=== PATIENT | female | born 1995 | race Caucasian/White ===

== ENCOUNTER 2017-06-15 07:14 | Emergency (ER) | END 2017-06-15 08:19 | disposition home or self-care (01) ==

== ENCOUNTER 2017-07-17 04:10 | Emergency (ER) | END 2017-07-17 08:43 | disposition home or self-care (01) ==

== ENCOUNTER 2018-07-16 14:08 | Emergency (ER) | payer OTHER ==
[~2018-07-16] VITALS: Ht 160 cm; Wt 107.6 kg
[~2018-07-16 14:08] MED LIST: AMOX500C2 PO; BEN25 PO; FIORICET PO; HC1C30 TOP; IBUP-1542 PO; IBUP-1561 PO
[2018-07-16 14:17] VITALS: BP 145/94; PULSE 99; RESP 18; Ht 160 cm; Wt 107.6 kg
[2018-07-16] MEDS ORDERED: ACET325T33 PO (14:36)
[2018-07-16] MEDS ORDERED: FAMO-96 PO (14:36)
--- NOTE | 2018-07-16 14:44 | ERD ---
ER Documentation Chief Complaint Chief Complaint Feels like there is "fluid in her throat" but not swelling/pain x 1 week HPI 23-year-old female presenting with irritation in her throat. She states that she occasionally has a burp that comes up from her belly and alleviates her irritation. Patient states this has been going on for about a week. She is not taken medications for symptoms. Denies any recent runny nose, shortness of breath or abdominal pain. Has no vomiting but feels nauseous. No fevers. Medical history of seizures. NKDA. Surgical history tonsillectomy 15 years ago. Social history denies ROS All systems reviewed and are negative except as per history of present illness. Medications Home Meds Active Scripts Acetaminophen* (Tylenol*) 325 Mg Tablet, 2 TAB PO Q6 PRN for PAIN AND OR ELEVATED TEMP, #20 TAB Prov:JOE GRULLON PA-C 07/16/18 Famotidine* (Pepcid*) 20 Mg Tablet, 20 MG PO BID for 4 Days, #30 TAB Prov:JOE GRULLON PA-C 07/16/18 Ibuprofen* (Motrin*) 600 Mg Tab, 600 MG PO Q6, #30 TAB Prov:JENNI DESAI PA-C 07/17/17 Amoxicillin* (Amoxicillin*) 500 Mg Cap, 500 MG PO TID for 7 Days, CAP Prov:JENNI DESAI PA-C 07/17/17 Acetamin/Butalbital/Caffeine* (Fioricet*) [id number] Tab, 1 TAB PO Q6H PRN for PAIN, #30 TAB Prov:JOE GRULLON PA-C 06/15/17 Hydrocortisone* Topical (Hydrocortisone* Topical) 1%-28.35 Gm Cream..g., 1 APPLIC TOP BID, #1 TUB 2 Refills Prov:ARA BRADFORD PA-C 08/08/15 Diphenhydramine Hcl* (Benadryl*) 25 Mg Cap, 25 MG PO Q6, #30 CAP 0 Refills Prov:ARA BRADFORD PA-C 08/08/15 Ibuprofen* (Motrin*) 400 Mg Tab, 400 MG PO Q8, #30 TAB 0 Refills Prov:ARA BRADFORD PA-C 08/08/15 Allergies Allergies: Coded Allergies: No Known Drug Allergies (Verified Allergy, Unknown, 08/08/15) PMhx/Soc History of Surgery: Yes (Tonsillectomy) Anesthesia Reaction: No Hx Neurological Disorder: No Hx Respiratory Disorders: No Hx Cardiac Disorders: No Hx Psychiatric Problems: No Hx Miscellaneous Medical Probl: Yes (Gall stones) Hx Alcohol Use: No Hx Substance Use: No Hx Tobacco Use: No FmHx Family History: No diabetes, No coronary disease, No other Physical Exam Vitals Vital Signs Date Temp Pulse Resp B/P (MAP) Pulse Ox O2 O2 Flow FiO2 Time Delivery Rate 07/16/18 98.0 99 18 145/94 98 14:17 (111) Physical Exam GENERAL: The patient is well-appearing, well-nourished, in no acute distress HEENT: Atraumatic. Conjunctivae are pink. Pupils equal, round, and reactive to light. There is no scleral icterus. Tympanic membranes clear bilaterally. Oropharynx clear. NECK: C-spine is soft and supple. There is no meningismus. There is no cervical lymphadenopathy. CHEST: Clear to auscultation bilaterally. There are no rales, wheezes or rhonchi. HEART: Regular rate and rhythm. No murmurs, clicks, rubs or gallops. ABDOMEN:Soft, nontender and nondistended. Good bowel sounds. No rebound or guarding. No gross peritonitis. No gross organomegaly or masses. Procedures/MDM MDM: 23-year-old female presenting with throat irritation. I believe patient likely has acid reflux. I have low suspicion for bacterial throat infection. I have low suspicion for pneumonia. I have low suspicion for acute abdominal emergency. I have low suspicion for bacterial infectious etiology. Patient is discharged with supportive medications and recommended to return to the ER symptoms change or worsen. All questions answered at discharge Departure Diagnosis: Primary Impression: Sore throat Condition: Stable Patient Instructions: Tips to Control Acid Reflux Referrals: COMMUNITY CLINICS YOU HAVE RECEIVED A MEDICAL SCREENING EXAM AND THE RESULTS INDICATE THAT YOU DO NOT HAVE A CONDITION THAT REQUIRES URGENT TREATMENT IN THE EMERGENCY DEPARTMENT. FURTHER EVALUATION AND TREATMENT OF YOUR CONDITION CAN WAIT UNTIL YOU ARE SEEN IN YOUR DOCTORS OFFICE WITHIN THE NEXT 1-2 DAYS. IT IS YOUR RESPONSIBILITY TO MAKE AN APPOINTMENT FOR FOLOW-UP CARE. IF YOU HAVE A PRIMARY DOCTOR --you should call your primary doctor and schedule an appointment IF YOU DO NOT HAVE A PRIMARY DOCTOR YOU CAN CALL OUR PHYSICIAN REFERRAL HOTLINE AT IF YOU CAN NOT AFFORD TO SEE A PHYSICIAN YOU CAN CHOSE FROM THE FOLLOWING [facility] [address] [facility] [address] [facility] [address] [facility] [address] [facility] [address] [facility] [address] Additional Instructions: FOLLOW UP WITH YOUR PRIMARY CARE PHYSICIAN TOMORROW.Return to this facility if you are not improving as expected. JOE GRULLON PA-C Jul 16, 2018 14:44
== END 2018-07-16 15:03 | disposition home or self-care (01) ==
LOC: FTE 14:08
DX: J02.9 Acute pharyngitis, unspecified (principal)
CPT/HCPCS: 99282

== ENCOUNTER 2018-07-23 22:32 | Emergency (ER) | payer OTHER ==
[~2018-07-23] VITALS: Ht 160 cm; Wt 107.9 kg
[~2018-07-23 22:32] MED LIST changes: +ACET325T33 PO; +FAMO-96 PO
[2018-07-23 22:43] VITALS: BP 149/93; PULSE 76; RESP 18; Ht 160 cm; Wt 107.9 kg
--- NOTE | 2018-07-24 01:07 | ERD ---
ER Documentation Chief Complaint Chief Complaint non prod cough x2wk, sob on exertion. denies asthma. no NVD, no temp HPI This is a 23-year-old female patient who presents to the emergency room with complaint of feeling like her throat is closing and cough after she runs up the stairs at her house. States this only happens to her at night when she gets home from being out. The only time she runs up any stairs or exerts herself is when she is at home. Denies fevers, denies dysphasia, unproductive cough, no wheezing, no chest pain. No recent travel, no hormone therapy, no leg pain. ROS All systems reviewed and are negative except as per history of present illness. Medications Home Meds Active Scripts Omeprazole* (Omeprazole*) 40 Mg Capsule.dr, 40 MG PO DAILY, #10 CAP Prov:TRACE RODRIGUEZ NP 07/24/18 Albuterol Sulfate* (Proair HFA*) 8.5 Gm Hfa.aer.ad, 2 PUFF INH Q4 for wheezing, #1 INHALER Prov:TRACE RODRIGUEZ NP 07/24/18 Acetaminophen* (Tylenol*) 325 Mg Tablet, 2 TAB PO Q6 PRN for PAIN AND OR ELEVATED TEMP, #20 TAB Prov:JOE GRULLON PA-C 07/16/18 Famotidine* (Pepcid*) 20 Mg Tablet, 20 MG PO BID for 4 Days, #30 TAB Prov:JOE GRULLON PA-C 07/16/18 Ibuprofen* (Motrin*) 600 Mg Tab, 600 MG PO Q6, #30 TAB Prov:JENNI DESAI PA-C 07/17/17 Amoxicillin* (Amoxicillin*) 500 Mg Cap, 500 MG PO TID for 7 Days, CAP Prov:JENNI DESAI PA-C 07/17/17 Acetamin/Butalbital/Caffeine* (Fioricet*) [id number] Tab, 1 TAB PO Q6H PRN for PAIN, #30 TAB Prov:JOE GRULLON PA-C 06/15/17 Hydrocortisone* Topical (Hydrocortisone* Topical) 1%-28.35 Gm Cream..g., 1 APPLIC TOP BID, #1 TUB 2 Refills Prov:ARA BRADFORD PA-C 08/08/15 Diphenhydramine Hcl* (Benadryl*) 25 Mg Cap, 25 MG PO Q6, #30 CAP 0 Refills Prov:ARA BRADFORD JACKIEMeenaYajaira 08/08/15 Ibuprofen* (Motrin*) 400 Mg Tab, 400 MG PO Q8, #30 TAB 0 Refills Prov:ARA BRADFORDYajaira 08/08/15 Allergies Allergies: Coded Allergies: No Known Drug Allergies (Verified Allergy, Unknown, 08/08/15) PMhx/Soc History of Surgery: Yes (Tonsillectomy) Anesthesia Reaction: No Hx Neurological Disorder: No Hx Respiratory Disorders: No Hx Cardiac Disorders: No Hx Psychiatric Problems: No Hx Miscellaneous Medical Probl: Yes (Gall stones) Hx Alcohol Use: No Hx Substance Use: No Hx Tobacco Use: No Smoking Status: Never smoker FmHx Family History: No diabetes, No coronary disease, No other Physical Exam Vitals Vital Signs Date Temp Pulse Resp B/P (MAP) Pulse Ox O2 O2 Flow FiO2 Time Delivery Rate 07/23/18 97.0 76 18 149/93 100 22:43 (111) Physical Exam Const: No acute distress Head: Atraumatic Eyes: Normal Conjunctiva, PERRL ENT: Normal External Ears, Nose and Mouth. Neck: Full range of motion. No meningismus. No lymphadenopathy or thyromegaly, no drooling Resp: Clear to auscultation bilaterally, no wheezing, no rales, no stridor Cardio: Regular rate and rhythm, no murmurs Abd: Soft, non tender, non distended. Normal bowel sounds Skin: No petechiae or rashes Back: No midline or flank tenderness Ext: No cyanosis, or edema Neur: Awake and alert Psych: Normal Mood and Affect Procedures/MDM This is a 23-year-old female patient who presents emergency room with complaint of feeling of shortness of breath when she runs up her stairs at her house. ED COURSE: The patient was stable throughout ED course. EKG: Read by , attending physician. EKG shows normal sinus rhythm at a rate of 65 bpm. No arrhythmias, acute ST elevations or T wave changes were noted. MEDICATIONS GIVEN: None. MDM: Discussion had with mother and child regarding potential causes of cough and exertional shortness of breath. Cardiac causes including ischemic heart disease do not appear to be a etiology today due to negative EKG and negative risk factors VJ 0. Patient provided with copy of EKG for follow-up with her primary care doctor. Exercise-induced asthma is another potential cause of her having cough and shortness of breath after exertion. Albuterol inhaler was prescribed with instructions on using prior to exertion. As the symptoms happen in the evening time GERD may be another possibility for evening cough. PPI prescription provided. There does not seem to be any indication for foreign body aspiration, thyromegaly, or other indication for impending airway obstruction. The patient is clinically well appearing and stable. Symptoms are not suggestive of cardiac ischemia, pulmonary embolus, aortic dissection, or other serious etiology. These diagnoses have been considered and excluded clinically and with additional diagnostic studies as indicated. Nonetheless, it is understood by both the patient and provider that no clinical or diagnostic assessment can entirely exclude such diseases. Chest pain precautions have been given and the patient has been advised to return for worsening symptoms or any concerns. DISPOSITION: The patient has been discharge home to follow-up with community physician. Departure Diagnosis: Primary Impression: Cough Condition: Stable Patient Instructions: Cough, Chronic, Uncertain Cause (Child) Referrals: COMMUNITY CLINICS Additional Instructions: Thank you very much for allowing us to participate in your care. Your health and safety is our top priority at [facility]. Call your primary care doctor TOMORROW for an appointment during the next 2-4 days and bring all the information and medications prescribed. Have prescriptions filled and follow precisely the directions on the label. If the symptoms get worse and your provider is unavailable, return to the Emergency Department immediately. Take albuterol inhaler 2 puffs with any wheezing or shortness of breath and 15 minutes before exercise Use omeprazole daily Follow-up with your doctor in 1-2 days for reevaluation. Bring EKG to doctor's appointment. TRACE RODRIGUEZ NP Jul 24, 2018 01:07
[2018-07-24] MEDS ORDERED: OMEP40CA6 PO (01:08)
[2018-07-24] MEDS ORDERED: ALBU8.5H8 INH (01:08)
== END 2018-07-24 01:39 | disposition home or self-care (01) ==
LOC: FTE 22:32
DX: R05 Cough (principal); R06.02 Shortness of breath
CPT/HCPCS: 93005; Z7502